=== PATIENT | female | born 1930 | race Caucasian/White ===

== ENCOUNTER 2016-06-05 00:02 | Emergency (ER) | payer MEDICARE, OTHER | END 2016-06-05 03:43 | disposition home or self-care (01) | LOC: ER 00:02 | DX: I10 Essential (primary) hypertension (principal); R42 Dizziness and giddiness; R51 Headache; N28.9 Disorder of kidney and ureter, unspecified | CPT/HCPCS: 36415; 96361; 96374; J0360 ==

== ENCOUNTER 2016-08-26 08:29 | Emergency (ER) | payer MEDICARE, OTHER | END 2016-08-26 13:13 | disposition home or self-care (01) | LOC: ER 08:29 | DX: S09.90XA Unspecified injury of head, initial encounter (principal); S51.012A Laceration without foreign body of left elbow, initial encounter; I10 Essential (primary) hypertension; Z90.710 Acquired absence of both cervix and uterus; Z96.643 Presence of artificial hip joint, bilateral; Z23 Encounter for immunization; Z79.899 Other long term (current) drug therapy; W01.198A Fall on same level from slipping, tripping and stumbling with subsequent striking against other object, initial encounter; Y92.009 Unspecified place in unspecified non-institutional (private) residence as the place of occurrence of the external cause | CPT/HCPCS: 36415; 90471; 96374; J0360 ==